=== PATIENT | male | born 1955 | race Caucasian/White ===

== ENCOUNTER → 2016-08-19 | Outpatient (RCR) | payer OTHER ==
[~2016-08-19] MED LIST: /ATOR40TA; /AUGM875TA; DOXE150C; FOSI10TA2; SYNT50TA; SYNTHROID; ZITH500T; [UNRECOGNIZED DRUG - OTHER]
== END ==
LOC: M PT 09:31
PROVIDERS: ATTEND Orthopaedic Surgery
DX: Z51.89 Encounter for other specified aftercare (principal); M75.40 Impingement syndrome of unspecified shoulder

== ENCOUNTER 2016-09-18 09:13 | Outpatient (RCR) | payer OTHER | END 2016-09-19 | LOC: M PT 09:13 | PROVIDERS: ATTEND Orthopaedic Surgery | DX: Z51.89 Encounter for other specified aftercare (principal); M75.40 Impingement syndrome of unspecified shoulder; M25.519 Pain in unspecified shoulder ==

== ENCOUNTER 2016-10-16 10:15 | Outpatient (RCR) | payer OTHER | END 2016-10-19 | LOC: M PT 10:15 | PROVIDERS: ATTEND Orthopaedic Surgery | DX: Z51.89 Encounter for other specified aftercare (principal); M75.40 Impingement syndrome of unspecified shoulder ==

== ENCOUNTER 2016-11-04 08:44 | Outpatient (RCR) | payer OTHER | END 2016-11-11 12:14 | disposition home or self-care (01) | LOC: M PT 08:44 | PROVIDERS: ATTEND Orthopaedic Surgery | DX: Z51.89 Encounter for other specified aftercare (principal); M75.40 Impingement syndrome of unspecified shoulder ==

== ENCOUNTER → 2016-12-31 | Outpatient (CLI) | payer OTHER | LOC: M LAB 15:00 | PROVIDERS: ATTEND Family Medicine | DX: E29.1 Testicular hypofunction (principal) ==

== ENCOUNTER → 2017-05-04 | Outpatient (CLI) | payer OTHER ==
[2017-05-04 11:09] LABS: MEAN CORPUSCULAR HEMOGLOBIN 30.3 pg (27.0-33.0); MEAN CORPUSCULAR HGB CONC 34.2 g/dl (32.0-36.5); MEAN CORPUSCULAR VOLUME 88.6 fl (80.0-96.0); PLATELET COUNT, AUTOMATED 163 10^3/uL (150-450); RED CELL DISTRIBUTION WIDTH 11.9 % (11.5-14.5); WHITE BLOOD COUNT 5.8 10^3/uL (4.0-10.0)
[2017-05-04 11:48] LABS: ALBUMIN 3.7 GM/DL (3.2-5.2); ALBUMIN/GLOBULIN RATIO 1.19 (1.00-1.93); ALKALINE PHOSPHATASE 69 U/L (45-117); ALT/SGPT 37 U/L (12-78); ANION GAP 5 MEQ/L (8-16); AST/SGOT 15 U/L (7-37); BILIRUBIN,TOTAL 0.6 MG/DL (0.2-1.0); BLOOD UREA NITROGEN 11 MG/DL (7-18); CALCIUM LEVEL 8.7 MG/DL (8.8-10.2); CARBON DIOXIDE LEVEL 31 MEQ/L (21-32); CHLORIDE LEVEL 104 MEQ/L (98-107); CHOLESTEROL LEVEL 138 MG/DL (<200); CREATININE FOR GFR 0.72 MG/DL (0.70-1.30); GLOMERULAR FILTRATION RATE > 60.0 (>49); GLUCOSE, FASTING 200 MG/DL (80-110); POTASSIUM SERUM 4.9 MEQ/L (3.5-5.1); SODIUM LEVEL 140 MEQ/L (136-145); TOTAL PROTEIN 6.8 GM/DL (6.4-8.2); TRIGLYCERIDES LEVEL 226 MG/DL (<150)
== END ==
LOC: M LAB 10:31
PROVIDERS: ATTEND Family Medicine
DX: I10 Essential (primary) hypertension (principal)

== ENCOUNTER → 2017-05-21 | Outpatient (RCR) | payer OTHER | LOC: M PT 05-18 14:53 | PROVIDERS: ATTEND Orthopaedic Surgery | DX: S80.12XD Contusion of left lower leg, subsequent encounter (principal); X58.XXXD Exposure to other specified factors, subsequent encounter; Y92.9 Unspecified place or not applicable; Y99.8 Other external cause status ==

== ENCOUNTER 2017-05-26 15:44 | Outpatient (RCR) | payer OTHER | END 2017-06-21 | LOC: M PT 15:44 | DX: Z51.89 Encounter for other specified aftercare (principal); S80.12XD Contusion of left lower leg, subsequent encounter ==

== ENCOUNTER → 2018-08-03 | Outpatient (CLI) | payer MEDICARE, OTHER ==
[~2018-08-03] MED LIST changes: +ATOR40TA75 PO; +DOXE50CA PO; +FOSI10TA2 PO; +GLYB5TA PO; +LEVO50TA5 PO; +METF-839 PO; +TADA5TAB PO; +TAMS1CAP17 PO; +TEST200I14 IM
[2018-08-03 10:55] LABS: HEMATOCRIT 51.4 % (42.0-52.0); HEMOGLOBIN 17.7 g/dl (13.5-17.5); MEAN CORPUSCULAR HEMOGLOBIN 30.6 pg (27.0-33.0); MEAN CORPUSCULAR HGB CONC 34.4 g/dl (32.0-36.5); MEAN CORPUSCULAR VOLUME 88.9 fl (80.0-96.0); PLATELET COUNT, AUTOMATED 161 10^3/uL (150-450); RED BLOOD COUNT 5.78 10^6/uL (4.30-6.10); WHITE BLOOD COUNT 5.7 10^3/uL (4.0-10.0)
[2018-08-03 11:16] LABS: ALT/SGPT 33 U/L (12-78); BILIRUBIN,TOTAL 0.7 MG/DL (0.2-1.0); BLOOD UREA NITROGEN 13 MG/DL (7-18); CALCIUM LEVEL 8.7 MG/DL (8.8-10.2); CARBON DIOXIDE LEVEL 29 MEQ/L (21-32); CHLORIDE LEVEL 105 MEQ/L (98-107); CHOLESTEROL LEVEL 138 MG/DL (<200); CHOLESTEROL RISK RATIO 4.312 (<5); CREATININE FOR GFR 0.72 MG/DL (0.70-1.30); GLOMERULAR FILTRATION RATE > 60.0 (>49); GLUCOSE, FASTING 179 MG/DL (70-100); HDL CHOLESTEROL 32 MG/DL (>40); LDL CHOLESTEROL 68 MG/DL (<100); NON-HDL-C 106 MG/DL; POTASSIUM SERUM 4.6 MEQ/L (3.5-5.1); PROSTATIC SPECIFIC AG MONITOR 0.35 NG/ML (< 4.00); SODIUM LEVEL 139 MEQ/L (136-145); TOTAL PROTEIN 6.7 GM/DL (6.4-8.2); TRIGLYCERIDES LEVEL 190 MG/DL (<150)
[2018-08-03 11:23] LABS: TESTOSTERONE 104 NG/DL (241-827)
[2018-08-03 11:55] LABS: HEMOGLOBIN A1c 7.8 %
== END ==
LOC: M LAB 10:08
PROVIDERS: ATTEND Family Medicine
DX: E03.9 Hypothyroidism, unspecified (principal); E11.9 Type 2 diabetes mellitus without complications
CPT/HCPCS: 36415; 80053; 80061; 83036; 84403; 84443; 85027; G0103

== ENCOUNTER 2018-08-23 10:09 | Day surgery (SDC) | payer MEDICARE, OTHER ==
[~2018-08-23] VITALS: Ht 165.1 cm; Wt 81.6 kg
[~2018-08-23 10:09] MED LIST changes: +NS 1,000 ML IV ONE
[2018-08-23] MEDS ORDERED: LIDOCAINE 2% INJ 100 MG/5 ML SDV (FOR ANES.) As Ordered ONE (10:54)
[2018-08-23] MEDS ORDERED: PROPOFOL 500 MG/50 ML VIAL As Ordered ONE (10:54)
--- NOTE | 2018-08-23 11:14 | ROOR ---
Patient Name: Joe Altamirano Procedure Date: 08/23/2018 10:48 AM Date of : 1955 Age: 63 Room: [facility] Gender: Male Note Status: Finalized Procedure: Total Colonoscopy to Cecum + ileoscopy Indications: High risk colon cancer surveillance: Personal history of colonic polyps, Last colonoscopy: 2013 Providers: Yovani Wade MD Referring MD: CIERA CAMPBELL MD Requesting Provider: Medicines: Monitored Anesthesia Care Complications: No immediate complications. Procedure: Pre-Anesthesia Assessment: - The heart rate, respiratory rate, oxygen saturations, blood pressure, adequacy of pulmonary ventilation, and response to care were monitored throughout the procedure. The Colonoscope was introduced through the anus and advanced to the cecum, identified by appendiceal orifice and ileocecal valve. The colonoscopy was performed without difficulty. The patient tolerated the procedure well. The quality of the bowel preparation was excellent. Findings: The perianal and digital rectal examinations were normal. Non-bleeding internal hemorrhoids were found during retroflexion. The hemorrhoids were small and Grade I (internal hemorrhoids that do not prolapse). Multiple small and large-mouthed diverticula were found in the recto-sigmoid colon, sigmoid colon and descending colon. The terminal ileum appeared normal. The exam was otherwise without abnormality on direct and retroflexion views. Impression: - Non-bleeding internal hemorrhoids. - Diverticulosis in the recto-sigmoid colon, in the sigmoid colon and in the descending colon. - The examined portion of the ileum was normal. - The examination was otherwise normal on direct and retroflexion views. - No specimens collected. - The exam was otherwise normal to the cecum. Recommendation: - Patient has a contact number available for emergencies. The signs and symptoms of potential delayed complications were discussed with the patient. Return to normal activities tomorrow. Written discharge instructions were provided to the patient. - High fiber diet. - Discharge patient to home. - Continue present medications. - Repeat colonoscopy in 5 years for surveillance. - Return to referring physician. - The findings and recommendations were discussed with the patient's family. Yovani Wade MD Yovani Wade MD 08/23/2018 11:13:58 AM This report has been signed electronically. Number of Addenda: 0 Note Initiated On: 08/23/2018 10:48 AM Estimated Blood Loss: Estimated blood loss: none.
[2018-08-23 11:37] VITALS: BP 153/93
== END 2018-08-23 11:41 | disposition home or self-care (01) ==
LOC: M OPP 10:09
PROVIDERS: ATTEND Internal Medicine Gastroenterology
DX: Z86.010 Personal history of colon polyps (principal); K64.0 First degree hemorrhoids; K57.30 Diverticulosis of large intestine without perforation or abscess without bleeding; E11.9 Type 2 diabetes mellitus without complications; Z79.84 Long term (current) use of oral hypoglycemic drugs; Z79.899 Other long term (current) drug therapy

== ENCOUNTER → 2019-01-31 | Outpatient (CLI) | payer MEDICARE, OTHER ==
[~2019-01-31] MED LIST changes: -/ATOR40TA; +LIPI1TAB2; -NS 1,000 ML IV ONE
[2019-01-31 10:12] LABS: PROSTATIC SPECIFIC AG MONITOR 0.49 NG/ML (< 4.00); THYROID STIMULATING HORMONE 2.13 uIU/ML (0.358-3.740)
[2019-01-31 10:37] LABS: HEMOGLOBIN A1c 7.6 %
== END ==
LOC: M LAB 09:01
PROVIDERS: ATTEND Family Medicine
DX: E03.9 Hypothyroidism, unspecified (principal); E11.9 Type 2 diabetes mellitus without complications; E29.1 Testicular hypofunction

== ENCOUNTER → 2019-06-20 | Outpatient (CLI) | payer MEDICARE, OTHER ==
[~2019-06-20] MED LIST changes: -FOSI10TA2 PO; +FOSI10TA4 PO
[2019-06-20 10:53] LABS: PROSTATIC SPECIFIC AG MONITOR 0.48 NG/ML (< 4.00)
[2019-06-20 11:05] LABS: HEMOGLOBIN A1c 7.5 %
== END ==
LOC: M LAB 09:23
PROVIDERS: ATTEND Family Medicine
DX: E29.1 Testicular hypofunction (principal); E11.9 Type 2 diabetes mellitus without complications; R53.83 Other fatigue; Z79.899 Other long term (current) drug therapy

== ENCOUNTER 2019-07-18 17:28 | Emergency (ER) | payer MEDICARE, OTHER ==
[~2019-07-18] VITALS: Ht 165.1 cm; Wt 83.5 kg
--- NOTE | 2019-07-18 18:24 | REP ---
Portable chest, 06:07 p.m., single AP view with the patient upright: Comparison is 05/10/2016. The lung maya are clear. Cardiac size is normal for portable positioning. The john, mediastinum, skeletal structures are unremarkable. Impression: Essentially negative portable chest. Electronically Signed by Austin Constantino MD 07/18/2019 06:14 P
[2019-07-18] MEDS ORDERED: ASPIRIN 81 MG CHEW TABLET PO ONE (18:30)
--- NOTE | 2019-07-18 18:54 | ECGEPIP ---
[facility] - ED Test Date: 2019-07-18 Pat Name: ODETTE GUTIERREZ Department: Room: - Gender: Male Community Mental Health Worker: merline : 1955 Requested By: THONG Guerra Order Number: [id number] Reading MD: Oliver Niño Measurements Intervals [place] Rate: 81 P: 47 NC: 176 QRS: -22 QRSD: 99 T: 45 QT: 355 QTc: 412 Interpretive Statements SINUS RHYTHM POSSIBLE LEFT ATRIAL ENLARGEMENT BORDERLINE LEFT AXIS DEVIATION INCOMPLETE RIGHT BUNDLE BRANCH BLOCK NONSPECIFIC T-WAVE ABNORMALITY Electronically Signed on 07-18-2019 18:54:12 EST by Oliver Niño
[2019-07-18 19:07] LABS: BASO # 0.1 10^3/uL (0.0-0.2); BASO % 0.7 % (0.0-1.0); EOS # 0.1 10^3/uL (0.0-0.5); EOS % 1.8 % (0.0-3.0); HEMATOCRIT 52.6 % (42.0-52.0); HEMOGLOBIN 17.1 g/dl (13.5-17.5); LYMPH # 1.6 10^3/uL (1.5-5.0); LYMPH % 23.5 % (24.0-44.0); MEAN CORPUSCULAR HEMOGLOBIN 29.3 pg (27.0-33.0); MEAN CORPUSCULAR HGB CONC 32.5 g/dl (32.0-36.5); MEAN CORPUSCULAR VOLUME 90.2 fl (80.0-96.0); MONO # 0.8 10^3/uL (0.0-0.8); MONO % 11.8 % (0.0-5.0); NEUTROPHILS # 4.1 10^3/uL (1.5-8.5); NEUTROPHILS % 61.8 % (36.0-66.0); PLATELET COUNT, AUTOMATED 168 10^3/uL (150-450); RED BLOOD COUNT 5.83 10^6/uL (4.30-6.10); WHITE BLOOD COUNT 6.7 10^3/uL (4.0-10.0)
[2019-07-18 19:18] LABS: INR 1.04; PROTHROMBIN TIME 13.3 SECONDS (11.8-14.0)
[2019-07-18 19:31] LABS: ALBUMIN 3.9 GM/DL (3.2-5.2); ALT/SGPT 31 U/L (12-78); BILIRUBIN,DIRECT 0.2 MG/DL (0.0-0.2); BILIRUBIN,TOTAL 0.6 MG/DL (0.2-1.0); BLOOD UREA NITROGEN 9 MG/DL (7-18); CALCIUM LEVEL 8.9 MG/DL (8.8-10.2); CARBON DIOXIDE LEVEL 26 MEQ/L (21-32); CHLORIDE LEVEL 109 MEQ/L (98-107); CK-MB VALUE MASS 9.6 NG/ML (<3.6); CPK CREATINE PHOSPHOKINASE 174 U/L (39-308); CREATININE FOR GFR 0.64 MG/DL (0.70-1.30); GLOMERULAR FILTRATION RATE > 60.0 (>49); GLUCOSE, FASTING 111 MG/DL (70-100); LIPASE 118 U/L (73-393); MB/CK RELATIVE INDEX 5.52 (< OR =4); POTASSIUM SERUM 4.4 MEQ/L (3.5-5.1); SODIUM LEVEL 140 MEQ/L (136-145); TOTAL PROTEIN 6.9 GM/DL (6.4-8.2); TROPONIN I 1.01 NG/ML (< 0.10)
[2019-07-18] MEDS ORDERED: HEPARIN DRIP 25,000 UNITS in IV 1 EA IV SCH (20:09)
[2019-07-18] MEDS ORDERED: HEPARIN SOD (PORCINE) 5000 UNITS/ML VIAL (J1644 PER 1000UNITS) IV ONE (20:15)
[2019-07-18] MEDS ORDERED: CLOPIDOGREL 300 MG TAB (PLAVIX) PO ONE (20:15)
[2019-07-18 21:30] VITALS: BP 177/96
[2019-07-18] MEDS ORDERED: NITROGLYCERIN 0.4 MG SUBL TABLET SL PRN (21:30)
[2019-07-18 21:34] VITALS: BP 177/96
== END 2019-07-18 21:37 | disposition short-term general hospital (02) ==
LOC: M ED 17:28
DX: I21.4 Non-ST elevation (NSTEMI) myocardial infarction (principal); I45.10 Unspecified right bundle-branch block; I10 Essential (primary) hypertension; E11.9 Type 2 diabetes mellitus without complications; E78.5 Hyperlipidemia, unspecified; E07.9 Disorder of thyroid, unspecified; Z79.899 Other long term (current) drug therapy; Z79.84 Long term (current) use of oral hypoglycemic drugs
CPT/HCPCS: 71045; 80048; 80076; 82550; 82553; 83690; 84484; 85025; 85610; 93005; 93041; 94760; 96374; 99285; J1644

== ENCOUNTER 2019-09-01 12:40 | Outpatient (RCR) | payer MEDICARE, OTHER ==
[~2019-09-01] VITALS: Ht 165.1 cm; Wt 171.0 kg
[2019-09-01 13:42] VITALS: BP 119/77
--- NOTE | 2019-09-01 14:24 | CARECAPL ---
Assessment Account #s: Initial Assessment General Diagnoses: CABG (x4), NSTEMI Date of event: Jul 25, 2019 Physician: Hung Savage MD Allergies: Coded Allergies: No Known Allergies (Unverified , 08/17/18) Date Entered Program: Sep 01, 2019 Risk strat for cardiac event: Moderate Exercise Date: Sep 01, 2019 Assessment: Initial Assessment Stages of change: Preperation Exercise Prescription Plan to build strength and endurance through a monitored exercise program and to educate about the risks of cardiac disease Modalities initiated: Treadmill (will add), Nustep (will add), Arm Aerometer (will add), Dumbells (will add), Recumbent Bike (will add) Frequency: 3 Duration (Minutes) 30 - 60 minutes total exercise a day. 15 - 20 work intervals in minutes. PRN rest intervals in minutes. Functional Capacity Goal Sustained Metabolic Equivalent of a task (MET) goal of 2.5-3.5 for 15 minutes. Intensity: 4-Quite a bit Progression (METS) Increase by: .5 METS every: 2-3 sessions Target Heart Rate Rest + 35-40 betablocker therapy Resistance Training: Yes Weight (pounds): 2 Reps: 6-8 Hypertension: Yes Hypertension controlled with: Medication Resting 119/77 Meds see below Medications Scheduled Atorvastatin Calcium (Atorvastatin Calcium), 40 MG PO QHS, (Reported) Doxepin HCl (Doxepin HCl), 200 MG PO QHS, (Reported) Fosinopril Sodium (Fosinopril Sodium), 10 MG PO QAM, (Reported) Glyburide (Glyburide), 5 MG PO BID, (Reported) Levothyroxine Sodium (Levothyroxine Sodium), 50 MCG PO DAILY, (Reported) Metformin HCl (Metformin HCl), 500 MG PO BID, (Reported) Tadalafil (Tadalafil), 5 MG PO QHS, (Reported) Tamsulosin Hcl (Tamsulosin HCl), 0.8 MG PO DAILY, (Reported) Testosterone Cypionate (Testosterone Cypionate), 2 ML IM [id number], (Reported) Target Goals Individual exercise Rx (1) BP 140/90 or 130/80 if DM or CKD (1) Aerobic active 30+min 5 days per week (1) Nutrition Date: Sep 01, 2019 Stages of change: Preperation Lipids Total Cholesterol (104), High Density Lipids (HDL) (31), Low Density Lipids (LDL) (56), Triglycerides (345) Lipid- med/supplement lipitor Diabetes Diabetes: Yes Diabetes medication metformin Weight Management Weight (lbs): 171 Height (inches): 65 Waist Circumference (Inches): 40 BMI: 28.5 Weight goal: 160 Alcohol: none Diet Access Tool: Rate your plate Score: 50 Target goal LDL-C<100 if triglycerides are >200 Non-HDL-C should be <130 (1) LDL-C<70 for high risk patients (4) HbA1c<7% (1) BMI<25 Waist cir<40in M/<35in F (1) Education Date: Sep 01, 2019 Assessment: Initial Assessment Learning Barriers: ready, learn Knowledge Test Score: 10 Stages of change: Contemplate Family Support: Yes Tobacco use: No Quit: >6 months Tobacco Use Smokeless tobacco: No Intervention Referral to smoking cessation: No Individual education and couns: No Tobacco Adjunct: No Target Goals Complete cessation of tobacco use (1). Psychosocial Date: Sep 01, 2019 Assessment: Initial Assessment Psych Test (Initial/Discharge) Tool Used: Other Score: 2 Stages of change: Preperation Intervention Physician Consult: No Physician Referral: No Target Goal Assess presence or absence of depression using a valid screening tool (1). Maximize coping skills (2). Positive support system (2). Patient/Program Goal Preventative Medication: Yes Aspirin, Yes Clopidogrel, Yes Beta blockade, Yes Statin/OTR lipid Lowering Fall Risk Assess: No Provider Assessment Provider Assessment: Proceed with rehab Chrissy Arndt RN Sep 01, 2019 14:24
--- NOTE | 2019-09-09 13:33 | CARECAPL ---
General Allergies: Coded Allergies: No Known Allergies (Unverified , 08/17/18) Exercise Prescription Duration (Minutes) 30 - 60 minutes total exercise a day. 15 - 20 work intervals in minutes. PRN rest intervals in minutes. Functional Capacity Goal Sustained Metabolic Equivalent of a task (MET) goal of for minutes. Progression (METS) Increase by: METS every: sessions Medications Scheduled Atorvastatin Calcium (Atorvastatin Calcium), 40 MG PO QHS, (Reported) Doxepin HCl (Doxepin HCl), 200 MG PO QHS, (Reported) Fosinopril Sodium (Fosinopril Sodium), 10 MG PO QAM, (Reported) Glyburide (Glyburide), 5 MG PO BID, (Reported) Levothyroxine Sodium (Levothyroxine Sodium), 50 MCG PO DAILY, (Reported) Metformin HCl (Metformin HCl), 500 MG PO BID, (Reported) Tadalafil (Tadalafil), 5 MG PO QHS, (Reported) Tamsulosin Hcl (Tamsulosin HCl), 0.8 MG PO DAILY, (Reported) Testosterone Cypionate (Testosterone Cypionate), 2 ML IM [id number], (Reported) Target Goals Individual exercise Rx (1) BP 140/90 or 130/80 if DM or CKD (1) Aerobic active 30+min 5 days per week (1) Target goal LDL-C<100 if triglycerides are >200 Non-HDL-C should be <130 (1) LDL-C<70 for high risk patients (4) HbA1c<7% (1) BMI<25 Waist cir<40in M/<35in F (1) Target Goals Complete cessation of tobacco use (1). Psychosocial Date: Sep 09, 2019 Target Goal Assess presence or absence of depression using a valid screening tool (1). Maximize coping skills (2). Positive support system (2). Provider Assessment Provider Assessment: No changes (cardiac rehab program closed d/t covid 19 pt accoutn to [place]) Chrissy Arndt RN Sep 09, 2019 13:33
== END 2019-09-20 ==
LOC: M CR 12:40
PROVIDERS: ATTEND Internal Medicine Cardiovascular Disease
DX: Z95.1 Presence of aortocoronary bypass graft (principal)

== ENCOUNTER 2020-10-04 23:57 | Emergency (ER) | payer MEDICARE, OTHER ==
[~2020-10-04] VITALS: Ht 167.6 cm; Wt 81.2 kg
[~2020-10-04 23:57] MED LIST changes: -GLYB5TA PO; +GLYB5TAB6 PO
[2020-10-05] MEDS ORDERED: METO37.5 PO (00:07)
[2020-10-05] MEDS ORDERED: ECOT81TA5 PO (00:07)
[2020-10-05] MEDS ORDERED: PLAV1TAB2 PO (00:07)
[2020-10-05] MEDS ORDERED: ONDANSETRON 4MG/2ML VIAL IV ONE (00:40)
[2020-10-05] MEDS ORDERED: ACETAMINOPHEN 325 MG TAB PO ONE (01:15)
[2020-10-05 01:24] LABS: BASO # 0.1 10^3/uL (0.0-0.2); BASO % 0.7 % (0.0-1.0); EOS # 0.1 10^3/uL (0.0-0.5); EOS % 1.6 % (0.0-3.0); HEMATOCRIT 40.6 % (42.0-52.0); HEMOGLOBIN 13.8 g/dl (13.5-17.5); LYMPH # 1.8 10^3/uL (1.5-5.0); LYMPH % 26.3 % (24.0-44.0); MEAN CORPUSCULAR HEMOGLOBIN 30.6 pg (27.0-33.0); MONO # 0.8 10^3/uL (0.0-0.8); MONO % 11.5 % (2.0-8.0); NEUTROPHILS # 4.2 10^3/uL (1.5-8.5); NEUTROPHILS % 59.6 % (36.0-66.0); PLATELET COUNT, AUTOMATED 182 10^3/uL (150-450); RED BLOOD COUNT 4.51 10^6/uL (4.30-6.10)
--- NOTE | 2020-10-05 01:31 | REPVR ---
PROCEDURE INFORMATION: Exam: CT Abdomen And Pelvis Without Contrast Exam date and time: 10/05/2020 12:36 AM Age: 65 years old Clinical indication: Abdominal pain; Flank; Left; Additional info: L flank pain, hematuria, HX renal stones TECHNIQUE: Imaging protocol: Computed tomography of the abdomen and pelvis without contrast. Radiation optimization: All CT scans at this facility use at least one of these dose optimization techniques: automated exposure control; mA and/or kV adjustment per patient size (includes targeted exams where dose is matched to clinical indication); or iterative reconstruction. COMPARISON: No relevant prior studies available. FINDINGS: Lungs: Calcified granuloma the right middle lobe. Bilateral dependent atelectasis. Liver: Hepatomegaly and steatosis. Gallbladder and bile ducts: Normal. No calcified stones. No ductal dilation. Pancreas: Normal. No ductal dilation. Spleen: Normal. No splenomegaly. Adrenal glands: Normal. No mass. Kidneys and ureters: Mild left hydroureteronephrosis to the level of a 4 mm calculus in the distal left ureter. Exophytic hemorrhagic or proteinaceous left renal cyst measuring approximately 3 cm in diameter. Small hemorrhagic right renal cyst is also noted. Stomach and bowel: Diverticulosis of colon. No evidence of acute diverticulitis. Scattered small bowel diverticula. Appendix: No evidence of appendicitis. Intraperitoneal space: Unremarkable. No free air. No significant fluid collection. Vasculature: Atherosclerotic disease of the abdominal aorta. Lymph nodes: Unremarkable. No enlarged lymph nodes. Urinary bladder: Unremarkable as visualized. Reproductive: Unremarkable as visualized. Bones/joints: Status post median sternotomy and CABG. Severe multilevel degenerative disease and facet hypertrophy of the thoracolumbar spine. Marked stenosis of the spinal canal at L3-L4. Severe bilateral neural foraminal stenosis L4-L5. Soft tissues: Fat containing right inguinal hernia. IMPRESSION: Mild left hydroureteronephrosis to the level of a 4 mm calculus in the distal left ureter. COMMENTS: Consistent with the [employer]'s Incidental Findings Committee white paper (J Am Edson Radiol 2018): Any incidental renal lesion less than 1 cm or classified as too small to characterize, or any incidental cystic renal lesion characterized as simple-appearing, is likely benign. No follow-up imaging is recommended for these lesions per consensus recommendations based on imaging criteria. Electronically signed by: Pranay Sauer On 10/05/2020 01:31:49 AM
[2020-10-05 01:45] LABS: ALBUMIN 3.8 GM/DL (3.2-5.2); BILIRUBIN,DIRECT 0.1 MG/DL (0.0-0.2); BILIRUBIN,TOTAL 0.4 MG/DL (0.2-1.0); TOTAL PROTEIN 6.9 GM/DL (6.4-8.2)
[2020-10-05] MEDS ORDERED: FLOM0.4C39 PO (01:53)
[2020-10-05 02:06] VITALS: BP 122/80
== END 2020-10-05 02:08 | disposition home or self-care (01) ==
LOC: M ED 23:57
DX: N20.0 Calculus of kidney (principal); N23 Unspecified renal colic; E11.9 Type 2 diabetes mellitus without complications; I10 Essential (primary) hypertension; E03.9 Hypothyroidism, unspecified; E78.5 Hyperlipidemia, unspecified; I25.2 Old myocardial infarction; Z95.1 Presence of aortocoronary bypass graft; Z79.899 Other long term (current) drug therapy; Z79.82 Long term (current) use of aspirin; Z79.84 Long term (current) use of oral hypoglycemic drugs; Z79.890 Hormone replacement therapy; Z79.01 Long term (current) use of anticoagulants
CPT/HCPCS: 74176; 80047; 80076; 81001; 85025; 96374; 99284; J2405

== ENCOUNTER 2021-02-27 10:24 | Emergency (ER) | payer MEDICARE, OTHER ==
[~2021-02-27] VITALS: Ht 165.1 cm; Wt 77.5 kg
[~2021-02-27 10:24] MED LIST changes: +ECOT81TA5 PO; +FLOM0.4C39 PO; +METO37.5 PO; +PLAV1TAB2 PO
[2021-02-27] MEDS ORDERED: METO1TAB87 (10:41)
[2021-02-27 13:19] LABS: BASO % 0.7 % (0.0-1.0); EOS # 0.1 10^3/uL (0.0-0.5); EOS % 0.9 % (0.0-3.0); HEMATOCRIT 38.9 % (42.0-52.0); HEMOGLOBIN 12.9 g/dl (13.5-17.5); LYMPH # 1.2 10^3/uL (1.5-5.0); LYMPH % 21.4 % (24.0-44.0); MEAN CORPUSCULAR HEMOGLOBIN 30.6 pg (27.0-33.0); MEAN CORPUSCULAR HGB CONC 33.2 g/dl (32.0-36.5); MEAN CORPUSCULAR VOLUME 92.4 fl (80.0-96.0); MONO % 16.8 % (2.0-8.0); NEUTROPHILS # 3.4 10^3/uL (1.5-8.5); NEUTROPHILS % 59.8 % (36.0-66.0); PLATELET COUNT, AUTOMATED 144 10^3/uL (150-450); RED BLOOD COUNT 4.21 10^6/uL (4.30-6.10); WHITE BLOOD COUNT 5.7 10^3/uL (4.0-10.0)
--- NOTE | 2021-02-27 13:21 | REP ---
INDICATION: SOB; COVID +. COMPARISON: 07/18/2019. TECHNIQUE: Single portable AP view of the chest was performed. FINDINGS: There is no acute infiltrate or pulmonary edema. Lungs are clear. The heart is not significantly enlarged. The mediastinal silhouette is unremarkable. The visualized osseous structures are intact.Multiple sternal wires are present. There is a stable calcified granuloma in the left upper lobe. IMPRESSION: No acute pulmonary disease. <Electronically signed by Austin Livingston > 02/27/21 [id number]
[2021-02-27 13:45] VITALS: BP 132/71
[2021-02-27 13:46] LABS: ALBUMIN 3.4 GM/DL (3.2-5.2); ALT/SGPT 28 U/L (12-78); BILIRUBIN,TOTAL 0.9 MG/DL (0.2-1.0); BLOOD UREA NITROGEN 15 MG/DL (7-18); CALCIUM LEVEL 8.9 MG/DL (8.8-10.2); CARBON DIOXIDE LEVEL 28 MEQ/L (21-32); CHLORIDE LEVEL 106 MEQ/L (98-107); CK-MB VALUE MASS 1.3 NG/ML (<3.6); CPK CREATINE PHOSPHOKINASE 135 U/L (39-308); CREATININE FOR GFR 0.82 MG/DL (0.70-1.30); GLOMERULAR FILTRATION RATE > 60.0 (>49); GLUCOSE, FASTING 124 MG/DL (70-100); MB/CK RELATIVE INDEX 0.96 (< OR =4); POTASSIUM SERUM 4.5 MEQ/L (3.5-5.1); SODIUM LEVEL 139 MEQ/L (136-145); TOTAL PROTEIN 6.7 GM/DL (6.4-8.2); TROPONIN I < 0.02 NG/ML (< 0.10)
--- NOTE | 2021-02-28 06:00 | ECGEPIP ---
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
== END 2021-02-27 16:12 | disposition home or self-care (01) ==
LOC: M ED 10:24
DX: U07.1 COVID-19 (principal); I25.2 Old myocardial infarction; E11.9 Type 2 diabetes mellitus without complications; I10 Essential (primary) hypertension; E78.5 Hyperlipidemia, unspecified; Z95.1 Presence of aortocoronary bypass graft; Z79.84 Long term (current) use of oral hypoglycemic drugs; Z79.82 Long term (current) use of aspirin; Z79.899 Other long term (current) drug therapy
CPT/HCPCS: 36415; 71045; 80053; 82550; 82553; 84484; 85025; 93005; 99284; M0243

== ENCOUNTER 2021-02-27 16:15 | Outpatient (CLI) | payer MEDICARE, OTHER ==
[~2021-02-27] VITALS: Ht 165.1 cm; Wt 77.5 kg
--- NOTE | 2021-02-27 15:28 | HPEPDOC ---
[facility] Medical History & Physical Date of Admission Feb 27, 2021 Date of Service: Feb 27, 2021 History and Physical Chief complaint: Who presented to the emergency room with weakness/ sore throat / stuffy nose History of present illness: Patient is a 65-year-old male who presented to the emergency room after experiencing 3 days of stuffy nose, sore throat and weakness. Patient lives with his , daughter and grandson. He reports that his daughter and grandson had tested positive for COVDI19 so he went to get tested on 02/26 and was found to be positive. Patient reported that hes been experiencing some shortness of breath with exert ion mostly nonproductive cough. Denies any chest pain or palpitations. Has had some nausea without vomiting. Denies any abdominal pain. Denies any constipation, diarrhea, or any urinary discomfort. Patient reports chills and subjective fevers while at home. Reports a poor appetite. Patient has reported that he has received 2 doses of the vaccine back in . Past Medical History: CAD s/p CABG HTN DLP NIDDM2 BPH Mood disorder Past Surgical History: CABG (06/2019) at [facility] Allergies: See below Medications: See below Family History: - Reviewed and noncontributory Social History: - Denies using tobacco, reports social alcohol use reported marijuana use. Very long time ago - Denies recent travel or sick contacts - Lives with , daughter and grandson - Occupation; patient is retired from [employer] Review of Systems: 10 point review of systems complete, all negative otherwise stated in HPI Physical exam: - Vitals: BP [132/71], HR [69], RR [18], Sat [96%RA], Temp [98.9F] - General: Lying in bed, Speaking in full sentences, AAOx3 - HEENT: NC, AT, PERRLA - CVS: RRR, +S1S2 - Lungs: Fair air entry bilaterally, No appreciable wheezing / rales / rhonchi - Abdomen: Soft, Non-distended, Non-tender - Extremities: No lower extremity edema, No calf tenderness - Neuro: No focal motor or sensory deficit - Skin: No visible rashes Labs: CXR 02/27: No acute pulmonary disease. Imaging: See below EKG: See below Assessment and Plan: Acute COVID19 infection - Patient presented to the emergency room after experiencing 3 days of sore throat, stuffy nose and weakness - In the emergency room, patient is saturating well on room air at 96% - Auscultation reveals clear lung maya; he remains hemodynamically stable and afebrile - Inflammatory markers are not significantly elevated - Imaging noted above - Patient meets criteria for infusion of monoclonal antibodies - Risk and benefits of monoclonal antibodies have been described; patient has consented and signed paperwork - Will receive monoclonal antibody fusion and will be subsequently discharged home with instructions to follow up with his primary care provider Home Medications Scheduled Aspirin (Ecotrin) 81 Mg Tablet.dr, 81 MG PO DAILY for pain Atorvastatin Calcium (Atorvastatin Calcium) 40 Mg Tab, 80 MG PO QHS Clopidogrel Bisulfate (Plavix) 75 Mg Tablet, 75 MG PO DAILY Doxepin HCl (Doxepin HCl) 50 Mg Cap, 200 MG PO QHS Fosinopril Sodium (Fosinopril Sodium) 10 Mg Tab, 20 MG PO QAM Glyburide (Glyburide) 5 Mg Tab, 5 MG PO BID Levothyroxine Sodium (Levothyroxine Sodium) 50 Mcg Tab, 88 MCG PO DAILY Metformin HCl (Metformin HCl) 500 Mg Tab, 500 MG PO BID Metoprolol Tartrate (Metoprolol Tartrate) 37.5 Mg Tablet, 25 MG PO BID Tamsulosin HCl (Flomax) 0.4 Mg Capsule, 1 CAP PO DAILY once daily 1/2 hour following the same meal each day Tamsulosin Hcl (Tamsulosin HCl) 0.4 Mg Cap, 0.8 MG PO DAILY Miscellaneous Medications Metoprolol Tartrate (Metoprolol Tartrate) 25 Mg Tablet Allergies Coded Allergies: No Known Allergies (Unverified , 08/17/18) LUIS FERNANDO BERNAL MD Feb 27, 2021 15:28
[~2021-02-27 16:15] MED LIST changes: +ALBUTEROL 90 MCG/ACT 8GM HFA INHALER INH PRN; +ALBUTEROL SULFATE 2.5 MG/0.5 ML INH NEB SOLN INH PRN; +EPINEPHrine INJ 1 MG/ML 1ML AMP IM PRN; +METO1TAB87; +NS 1,000 ML IV SCH; +diphenhydrAMINE 50MG/ML VIAL (J1200) IV PRN; +methylPREDNISolone 125MG 2ML VIAL IV PRN
[2021-02-27 16:29] VITALS: BP 131/69
[2021-02-27 18:00] VITALS: BP 121/58
[2021-02-27] MEDS ORDERED: CASIRIVIMAB/IMDEVIMAB 1,200 MG in NS 250 ML IV ONE (18:00)
[2021-02-27 18:26] VITALS: BP 121/58
[2021-02-27 19:05] VITALS: BP 115/56
[2021-02-27 19:59] VITALS: BP 158/78
== END 2021-02-27 20:05 | disposition home or self-care (01) ==
LOC: M 4MAIN 16:15 → M OPCLI4 16:15
PROVIDERS: ATTEND Internal Medicine
DX: U07.1 COVID-19 (principal)

== ENCOUNTER → 2021-04-11 | Outpatient (CLI) | payer MEDICARE, OTHER ==
[~2021-04-11] MED LIST changes: -ALBUTEROL 90 MCG/ACT 8GM HFA INHALER INH PRN; -ALBUTEROL SULFATE 2.5 MG/0.5 ML INH NEB SOLN INH PRN; -EPINEPHrine INJ 1 MG/ML 1ML AMP IM PRN; -NS 1,000 ML IV SCH; -diphenhydrAMINE 50MG/ML VIAL (J1200) IV PRN; -methylPREDNISolone 125MG 2ML VIAL IV PRN
[2021-04-11 13:16] LABS: HEMATOCRIT 38.9 % (42.0-52.0); MEAN CORPUSCULAR HEMOGLOBIN 30.4 pg (27.0-33.0); MEAN CORPUSCULAR HGB CONC 33.4 g/dl (32.0-36.5); MEAN CORPUSCULAR VOLUME 90.9 fl (80.0-96.0); PLATELET COUNT, AUTOMATED 184 10^3/uL (150-450); RED BLOOD COUNT 4.28 10^6/uL (4.30-6.10); WHITE BLOOD COUNT 5.1 10^3/uL (4.0-10.0)
[2021-04-11 13:35] LABS: HEMOGLOBIN A1c 6.2 %
[2021-04-11 13:59] LABS: ALBUMIN 3.5 GM/DL (3.2-5.2); ALT/SGPT 36 U/L (12-78); BILIRUBIN,TOTAL 0.7 MG/DL (0.2-1.0); BLOOD UREA NITROGEN 15 MG/DL (7-18); CALCIUM LEVEL 8.5 MG/DL (8.8-10.2); CARBON DIOXIDE LEVEL 26 MEQ/L (21-32); CHLORIDE LEVEL 107 MEQ/L (98-107); CHOLESTEROL LEVEL 117 MG/DL (<200); CHOLESTEROL RISK RATIO 3.656 (<5); CREATININE FOR GFR 0.78 MG/DL (0.70-1.30); GLOMERULAR FILTRATION RATE > 60.0 (>49); GLUCOSE, FASTING 181 MG/DL (70-100); HDL CHOLESTEROL 32 MG/DL (>40); LDL CHOLESTEROL 42 MG/DL (<100); NON-HDL-C 85 MG/DL; POTASSIUM SERUM 4.9 MEQ/L (3.5-5.1); PROSTATIC SPECIFIC AG MONITOR 0.22 NG/ML (< 4.00); SODIUM LEVEL 138 MEQ/L (136-145); TESTOSTERONE 90 NG/DL (241-827); THYROID STIMULATING HORMONE 0.517 uIU/ML (0.358-3.740); TOTAL 25(OH) VITAMIN D 26.8 NG/ML (30.0-100.0); TOTAL PROTEIN 6.7 GM/DL (6.4-8.2); TRIGLYCERIDES LEVEL 216 MG/DL (<150)
== END ==
LOC: M LAB 12:01
PROVIDERS: ATTEND Family Medicine
DX: I10 Essential (primary) hypertension (principal); E03.9 Hypothyroidism, unspecified; R97.20 Elevated prostate specific antigen [PSA]

== ENCOUNTER → 2021-05-03 | Outpatient (CLI) | payer MEDICARE, OTHER ==
--- NOTE | 2021-05-03 11:55 | REP ---
INDICATION: SPRAIN. COMPARISON: 01/02/2006 TECHNIQUE: Four views FINDINGS: Mild joint space narrowing has developed throughout since the last exam.. There is no evidence of acute fracture or destructive osseous lesion. Plantar and retrocalcaneal heel spurs seen previously have increased in size. IMPRESSION: Chronic changes as described above. <Electronically signed by Torin Mcmahon > 05/03/21 [id number]
--- NOTE | 2021-05-03 11:56 | REP ---
INDICATION: SPRAIN. COMPARISON: 01/02/2006 TECHNIQUE: Four views FINDINGS: No acute fracture or destructive osseous lesion. The mortise is intact. IMPRESSION: No acute osseous abnormality. <Electronically signed by Torin Mcmahon > 05/03/21 [id number]
== END ==
LOC: M WUC 11:17
PROVIDERS: ATTEND Physician Assistant
DX: S93.402A Sprain of unspecified ligament of left ankle, initial encounter (principal); S93.602A Unspecified sprain of left foot, initial encounter; W18.30XA Fall on same level, unspecified, initial encounter; Y92.009 Unspecified place in unspecified non-institutional (private) residence as the place of occurrence of the external cause

== ENCOUNTER → 2022-01-21 | Outpatient (CLI) | payer MEDICARE, OTHER ==
[~2022-01-21] MED LIST changes: -FOSI10TA4 PO; +FOSI10TA44 PO
[2022-01-21 10:50] LABS: HEMATOCRIT 38.7 % (42.0-52.0); HEMOGLOBIN 13.1 g/dl (13.5-17.5); MEAN CORPUSCULAR HEMOGLOBIN 30.7 pg (27.0-33.0); MEAN CORPUSCULAR HGB CONC 33.9 g/dl (32.0-36.5); MEAN CORPUSCULAR VOLUME 90.6 fl (80.0-96.0); PLATELET COUNT, AUTOMATED 153 10^3/uL (150-450); RED BLOOD COUNT 4.27 10^6/uL (4.30-6.10); WHITE BLOOD COUNT 5.6 10^3/uL (4.0-10.0)
[2022-01-21 12:59] LABS: ALBUMIN 3.8 GM/DL (3.2-5.2); ALT/SGPT 31 U/L (12-78); BILIRUBIN,TOTAL 0.4 MG/DL (0.2-1.0); BLOOD UREA NITROGEN 16 MG/DL (7-18); CALCIUM LEVEL 9.3 MG/DL (8.8-10.2); CARBON DIOXIDE LEVEL 26 MEQ/L (21-32); CHLORIDE LEVEL 111 MEQ/L (98-107); CHOLESTEROL LEVEL 139 MG/DL (<200); CHOLESTEROL RISK RATIO 4.343 (<5); CREATININE FOR GFR 0.76 MG/DL (0.70-1.30); GLOMERULAR FILTRATION RATE > 60.0 (>49); GLUCOSE, FASTING 183 MG/DL (70-100); HDL CHOLESTEROL 32 MG/DL (>40); LDL CHOLESTEROL 55 MG/DL (<100); NON-HDL-C 107 MG/DL; POTASSIUM SERUM 4.7 MEQ/L (3.5-5.1); SODIUM LEVEL 142 MEQ/L (136-145); THYROID STIMULATING HORMONE 0.127 uIU/ML (0.358-3.740); TOTAL PROTEIN 6.6 GM/DL (6.4-8.2); TRIGLYCERIDES LEVEL 262 MG/DL (<150)
[2022-01-21 13:31] LABS: TESTOSTERONE 44 NG/DL (241-827)
[2022-01-21 15:18] LABS: HEMOGLOBIN A1c 6.9 %
== END ==
LOC: M RAD 10:15
PROVIDERS: ATTEND Family Medicine
DX: R53.83 Other fatigue (principal); E78.00 Pure hypercholesterolemia, unspecified; Z12.5 Encounter for screening for malignant neoplasm of prostate
CPT/HCPCS: 36415; 71046; 80053; 80061; 82306; 83036; 84403; 84443; 85027; 93005; G0103

== ENCOUNTER → 2022-03-20 | Outpatient (CLI) | payer MEDICARE, OTHER ==
[2022-03-20 16:47] LABS: HEMATOCRIT 44.7 % (42.0-52.0); HEMOGLOBIN 14.6 g/dl (13.5-17.5); MEAN CORPUSCULAR HEMOGLOBIN 30.3 pg (27.0-33.0); MEAN CORPUSCULAR HGB CONC 32.7 g/dl (32.0-36.5); MEAN CORPUSCULAR VOLUME 92.7 fl (80.0-96.0); PLATELET COUNT, AUTOMATED 169 10^3/uL (150-450); RED BLOOD COUNT 4.82 10^6/uL (4.30-6.10); WHITE BLOOD COUNT 6.2 10^3/uL (4.0-10.0)
[2022-03-20 17:34] LABS: ALBUMIN 3.7 GM/DL (3.2-5.2); ALT/SGPT 23 U/L (12-78); BILIRUBIN,TOTAL 0.8 MG/DL (0.2-1.0); BLOOD UREA NITROGEN 10 MG/DL (7-18); CALCIUM LEVEL 8.6 MG/DL (8.8-10.2); CARBON DIOXIDE LEVEL 29 MEQ/L (21-32); CHLORIDE LEVEL 101 MEQ/L (98-107); CHOLESTEROL LEVEL 70 MG/DL (<200); CREATININE FOR GFR 0.95 MG/DL (0.70-1.30); GLOMERULAR FILTRATION RATE > 60.0 (>49); GLUCOSE, FASTING 252 MG/DL (70-100); HDL CHOLESTEROL 28 MG/DL (>40); LDL CHOLESTEROL 23 MG/DL (<100); NON-HDL-C 42 MG/DL; POTASSIUM SERUM 3.9 MEQ/L (3.5-5.1); SODIUM LEVEL 136 MEQ/L (136-145); TOTAL PROTEIN 6.7 GM/DL (6.4-8.2); TRIGLYCERIDES LEVEL 97 MG/DL (<150)
[2022-03-20 17:35] LABS: THYROID STIMULATING HORMONE 0.264 uIU/ML (0.358-3.740)
[2022-03-20 19:02] LABS: TESTOSTERONE 609 NG/DL (241-827)
[2022-03-20 19:04] LABS: HEMOGLOBIN A1c 6.4 %
== END ==
LOC: M LAB 15:14
PROVIDERS: ATTEND Family Medicine
DX: I10 Essential (primary) hypertension (principal); Z12.5 Encounter for screening for malignant neoplasm of prostate
CPT/HCPCS: 36415; 80053; 80061; 83036; 84403; 84443; 85027; G0103

== ENCOUNTER → 2022-07-16 | Outpatient (CLI) | payer MEDICARE, OTHER ==
[~2022-07-16] MED LIST changes: +CLOP75TA99 PO; -PLAV1TAB2 PO
[2022-07-16 14:57] LABS: HEMATOCRIT 45.7 % (42.0-52.0); MEAN CORPUSCULAR HEMOGLOBIN 29.1 pg (27.0-33.0); MEAN CORPUSCULAR HGB CONC 32.8 g/dl (32.0-36.5); MEAN CORPUSCULAR VOLUME 88.6 fl (80.0-96.0); PLATELET COUNT, AUTOMATED 182 10^3/uL (150-450); RED BLOOD COUNT 5.16 10^6/uL (4.30-6.10); WHITE BLOOD COUNT 7.1 10^3/uL (4.0-10.0)
[2022-07-16 15:24] LABS: ALBUMIN 4.1 G/DL (3.2-5.2); ALKALINE PHOSPHATASE 71 U/L (46-116); ALT/SGPT 24 U/L (7.0-40); AST/SGOT 19 U/L (<34); BILIRUBIN,TOTAL 1.1 MG/DL (0.3-1.2); BLOOD UREA NITROGEN 16 MG/DL (9-23); CARBON DIOXIDE LEVEL 28 MMOL/L (20-31); CHLORIDE LEVEL 104 MMOL/L (98-107); CHOLESTEROL LEVEL 115 MG/DL (<200); CHOLESTEROL RISK RATIO 3.66 (<5); CREATININE FOR GFR 0.67 MG/DL (0.70-1.30); GLOMERULAR FILTRATION RATE > 60.0 (>49); GLUCOSE, FASTING 158 MG/DL (74-106); HDL CHOLESTEROL 31.4 MG/DL (>40); LDL CHOLESTEROL 44.4 MG/DL (<100); NON-HDL-C 84 MG/DL; POTASSIUM SERUM 4.8 MMOL/L (3.5-5.1); SODIUM LEVEL 138 MMOL/L (136-145); TOTAL PROTEIN 7.2 G/DL (5.7-8.2); TRIGLYCERIDES LEVEL 196 MG/DL (<150)
[2022-07-16 15:26] LABS: THYROID STIMULATING HORMONE 0.757 uIU/ML (0.55-4.78)
[2022-07-16 15:27] LABS: TESTOSTERONE 52 NG/DL (241-827)
[2022-07-16 15:49] LABS: HEMOGLOBIN A1c 6.6 % (4.0-6.0)
== END ==
LOC: M LAB 13:41
PROVIDERS: ATTEND Family Medicine
DX: I10 Essential (primary) hypertension (principal); Z12.5 Encounter for screening for malignant neoplasm of prostate
CPT/HCPCS: 36415; 80053; 80061; 83036; 84403; 84443; 85027; G0103

== ENCOUNTER → 2022-11-15 | Outpatient (CLI) | payer MEDICARE, OTHER ==
[2022-11-15 11:22] LABS: HEMATOCRIT 47.9 % (42.0-52.0); MEAN CORPUSCULAR HGB CONC 33.4 g/dl (32.0-36.5); MEAN CORPUSCULAR VOLUME 89.7 fl (80.0-96.0); PLATELET COUNT, AUTOMATED 144 10^3/uL (150-450); RED BLOOD COUNT 5.34 10^6/uL (4.30-6.10); WHITE BLOOD COUNT 6.2 10^3/uL (4.0-10.0)
[2022-11-15 11:54] LABS: HEMOGLOBIN A1c 6.7 % (4.0-6.0)
[2022-11-15 11:55] LABS: ALBUMIN 4.1 G/DL (3.2-5.2); ALKALINE PHOSPHATASE 68 U/L (46-116); ALT/SGPT 35 U/L (7.0-40); AST/SGOT 22 U/L (<34); BILIRUBIN,TOTAL 0.8 MG/DL (0.3-1.2); BLOOD UREA NITROGEN 15 MG/DL (9-23); CALCIUM LEVEL 8.8 MG/DL (8.3-10.6); CARBON DIOXIDE LEVEL 29 MMOL/L (20-31); CHLORIDE LEVEL 105 MMOL/L (98-107); CHOLESTEROL LEVEL 110 MG/DL (<200); CHOLESTEROL RISK RATIO 3.95 (<5); GLOMERULAR FILTRATION RATE > 60.0 (>49); GLUCOSE, FASTING 179 MG/DL (74-106); HDL CHOLESTEROL 27.8 MG/DL (>40); LDL CHOLESTEROL 41.4 MG/DL (<100); NON-HDL-C 82.2 MG/DL; POTASSIUM SERUM 4.9 MMOL/L (3.5-5.1); PROSTATIC SPECIFIC AG MONITOR 0.31 NG/ML (< 4.00); SODIUM LEVEL 139 MMOL/L (136-145); TOTAL PROTEIN 6.7 G/DL (5.7-8.2); TRIGLYCERIDES LEVEL 204 MG/DL (<150)
[2022-11-15 11:57] LABS: TESTOSTERONE 70 NG/DL (241-827); THYROID STIMULATING HORMONE 0.597 uIU/ML (0.55-4.78)
== END ==
LOC: M LAB 10:53
PROVIDERS: ATTEND Family Medicine
DX: I10 Essential (primary) hypertension (principal); R97.20 Elevated prostate specific antigen [PSA]

== ENCOUNTER → 2023-01-22 | Outpatient (CLI) | payer MEDICARE, OTHER ==
[2023-01-22 10:24] LABS: HEMATOCRIT 47.8 % (42.0-52.0); HEMOGLOBIN 15.6 g/dl (13.5-17.5); MEAN CORPUSCULAR HEMOGLOBIN 30.3 pg (27.0-33.0); MEAN CORPUSCULAR HGB CONC 32.6 g/dl (32.0-36.5); MEAN CORPUSCULAR VOLUME 92.8 fl (80.0-96.0); PLATELET COUNT, AUTOMATED 160 10^3/uL (150-450); RED BLOOD COUNT 5.15 10^6/uL (4.30-6.10); WHITE BLOOD COUNT 7.6 10^3/uL (4.0-10.0)
[2023-01-22 10:39] LABS: INR 0.95; PROTHROMBIN TIME 12.9 SECONDS (12.5-14.5)
[2023-01-22 10:49] LABS: HEMOGLOBIN A1c 6.3 % (4.0-6.0)
[2023-01-22 10:53] LABS: PROSTATIC SPECIFIC AG MONITOR 0.76 NG/ML (< 4.00)
[2023-01-22 10:56] LABS: ALBUMIN 3.9 G/DL (3.2-5.2); ALKALINE PHOSPHATASE 67 U/L (46-116); ALT/SGPT 21 U/L (7.0-40); AST/SGOT 11 U/L (<34); BILIRUBIN,TOTAL 0.9 MG/DL (0.3-1.2); BLOOD UREA NITROGEN 10 MG/DL (9-23); CARBON DIOXIDE LEVEL 31 MMOL/L (20-31); CHLORIDE LEVEL 106 MMOL/L (98-107); CHOLESTEROL LEVEL 80 MG/DL (<200); CHOLESTEROL RISK RATIO 3.12 (<5); CREATININE FOR GFR 0.87 MG/DL (0.70-1.30); GLOMERULAR FILTRATION RATE > 60.0 (>49); GLUCOSE, FASTING 125 MG/DL (74-106); HDL CHOLESTEROL 25.6 MG/DL (>40); LDL CHOLESTEROL 29.4 MG/DL (<100); NON-HDL-C 54.4 MG/DL; POTASSIUM SERUM 5.1 MMOL/L (3.5-5.1); SODIUM LEVEL 141 MMOL/L (136-145); TOTAL PROTEIN 6.6 G/DL (5.7-8.2); TRIGLYCERIDES LEVEL 125 MG/DL (<150)
[2023-01-22 10:57] LABS: THYROID STIMULATING HORMONE 0.256 uIU/ML (0.55-4.78)
== END ==
LOC: M RAD 09:39
PROVIDERS: ATTEND Family Medicine
DX: I10 Essential (primary) hypertension (principal); J44.9 Chronic obstructive pulmonary disease, unspecified; R97.20 Elevated prostate specific antigen [PSA]; Z79.01 Long term (current) use of anticoagulants

== ENCOUNTER 2023-02-03 07:36 | Day surgery (SDC) | payer MEDICARE, OTHER ==
[~2023-02-03] VITALS: Ht 165.1 cm; Wt 80.7 kg
[~2023-02-03 07:36] MED LIST changes: +CEFUROXIME 1MG/0.1ML INTRACAMERAL INJ As Ordered ONE; +CYCLOPENTOLATE 1% OPHTH SOLN 2ML BTL OD SCH; +LIDOCAINE 1% SDV 5ML VIAL As Ordered ONE; -METO1TAB87; +METO1TAB87 PO; +MIDAZOLAM INJ 2MG/2ML VIAL As Ordered ONE; +OFLOXACIN 0.3 % (OCUFLOX) OPTH SOL 5ML OD SCH; +PHENYLEPHRINE 2.5% OPHTH SOL 2ML OD SCH; +PROPARACAINE 0.5% OPHTH SOL 15ML OD ONE; +TROPICAMIDE 1% OPHTH SOLN 15ML OD SCH; +fentaNYL 100 MCG/2 ML INJECTION As Ordered ONE
[2023-02-03] MEDS ORDERED: LIDOCAINE 1% SDV 5ML VIAL SC PRN (08:00)
[2023-02-03 09:40] VITALS: BP 119/64; TEMP 98.6; O2SAT 94
== END 2023-02-03 08:51 | disposition home or self-care (01) ==
LOC: M SDC 07:36
PROVIDERS: ATTEND Ophthalmology
DX: H25.11 Age-related nuclear cataract, right eye (principal); I10 Essential (primary) hypertension; E78.5 Hyperlipidemia, unspecified; I25.2 Old myocardial infarction; E11.9 Type 2 diabetes mellitus without complications; Z95.5 Presence of coronary angioplasty implant and graft; Z79.899 Other long term (current) drug therapy
CPT/HCPCS: 66984; J0697; J2250; J3010; V2632

== ENCOUNTER 2023-03-03 06:47 | Day surgery (SDC) | payer MEDICARE, OTHER ==
[~2023-03-03] VITALS: Ht 165.1 cm; Wt 79.4 kg
[~2023-03-03 06:47] MED LIST changes: +BSS IRR 500ML/OMIDRIA 4ML IRR BAG (OR ONLY) As Ordered ONE; -CYCLOPENTOLATE 1% OPHTH SOLN 2ML BTL OD SCH; +CYCLOPENTOLATE 1% OPHTH SOLN 2ML BTL OS SCH; +FOSI20TA79 PO; -MIDAZOLAM INJ 2MG/2ML VIAL As Ordered ONE; -OFLOXACIN 0.3 % (OCUFLOX) OPTH SOL 5ML OD SCH; +OFLOXACIN 0.3 % (OCUFLOX) OPTH SOL 5ML OS SCH; -PHENYLEPHRINE 2.5% OPHTH SOL 2ML OD SCH; +PHENYLEPHRINE 2.5% OPHTH SOL 2ML OS SCH; -PROPARACAINE 0.5% OPHTH SOL 15ML OD ONE; +PROPARACAINE 0.5% OPHTH SOL 15ML OS ONE; -TROPICAMIDE 1% OPHTH SOLN 15ML OD SCH; +TROPICAMIDE 1% OPHTH SOLN 15ML OS SCH; -fentaNYL 100 MCG/2 ML INJECTION As Ordered ONE
[2023-03-03] MEDS ORDERED: fentaNYL 100 MCG/2 ML INJECTION As Ordered ONE (08:29)
[2023-03-03] MEDS ORDERED: MIDAZOLAM INJ 2MG/2ML VIAL As Ordered ONE (08:29)
[2023-03-03] MEDS ORDERED: hydrALAZINE 20MG/ML 1ML VIAL As Ordered ONE (08:32)
[2023-03-03 08:43] VITALS: BP 154/84; TEMP 96.9; O2SAT 95
== END 2023-03-03 08:57 | disposition home or self-care (01) ==
LOC: M SDC 06:47
PROVIDERS: ATTEND Ophthalmology
DX: H25.12 Age-related nuclear cataract, left eye (principal); I25.2 Old myocardial infarction; N40.0 Benign prostatic hyperplasia without lower urinary tract symptoms; F41.9 Anxiety disorder, unspecified; F32.A Depression, unspecified; E03.9 Hypothyroidism, unspecified; E11.9 Type 2 diabetes mellitus without complications; E78.5 Hyperlipidemia, unspecified; Z95.1 Presence of aortocoronary bypass graft; Z79.84 Long term (current) use of oral hypoglycemic drugs; Z79.899 Other long term (current) drug therapy
CPT/HCPCS: 66984; J0360; J0697; J1097; J2250; J3010; V2632

== ENCOUNTER → 2023-09-30 | Outpatient (CLI) | payer MEDICARE, OTHER ==
[~2023-09-30] MED LIST changes: -BSS IRR 500ML/OMIDRIA 4ML IRR BAG (OR ONLY) As Ordered ONE; -CEFUROXIME 1MG/0.1ML INTRACAMERAL INJ As Ordered ONE; -CYCLOPENTOLATE 1% OPHTH SOLN 2ML BTL OS SCH; -LIDOCAINE 1% SDV 5ML VIAL As Ordered ONE; -OFLOXACIN 0.3 % (OCUFLOX) OPTH SOL 5ML OS SCH; -PHENYLEPHRINE 2.5% OPHTH SOL 2ML OS SCH; -PROPARACAINE 0.5% OPHTH SOL 15ML OS ONE; -TROPICAMIDE 1% OPHTH SOLN 15ML OS SCH
[2023-09-30 11:22] LABS: HEMATOCRIT 47.4 % (42.0-52.0); HEMOGLOBIN 15.8 g/dl (13.5-17.5); MEAN CORPUSCULAR HEMOGLOBIN 30.2 pg (27.0-33.0); MEAN CORPUSCULAR HGB CONC 33.3 g/dl (32.0-36.5); MEAN CORPUSCULAR VOLUME 90.5 fl (80.0-96.0); PLATELET COUNT, AUTOMATED 164 10^3/uL (150-450); RED BLOOD COUNT 5.24 10^6/uL (4.30-6.10); WHITE BLOOD COUNT 5.7 10^3/uL (4.0-10.0)
[2023-09-30 12:11] LABS: ALBUMIN 3.7 G/DL (3.2-5.2); ALKALINE PHOSPHATASE 63 U/L (46-116); ALT/SGPT 29 U/L (7.0-40); AST/SGOT 15 U/L (<34); BLOOD UREA NITROGEN 19 MG/DL (9-23); CALCIUM LEVEL 8.7 MG/DL (8.3-10.6); CARBON DIOXIDE LEVEL 28 MMOL/L (20-31); CHLORIDE LEVEL 105 MMOL/L (98-107); CHOLESTEROL LEVEL 105 MG/DL (<200); CREATININE FOR GFR 0.72 MG/DL (0.70-1.30); GLOMERULAR FILTRATION RATE > 60.0 (>42); GLUCOSE, FASTING 206 MG/DL (74-106); HDL CHOLESTEROL 26.2 MG/DL (>40); LDL CHOLESTEROL 34.2 MG/DL (<100); NON-HDL-C 78.8 MG/DL; PROSTATIC SPECIFIC AG MONITOR 0.28 NG/ML (< 4.00); SODIUM LEVEL 139 MMOL/L (136-145); TOTAL PROTEIN 6.4 G/DL (5.7-8.2); TRIGLYCERIDES LEVEL 223 MG/DL (<150)
[2023-09-30 12:14] LABS: HEMOGLOBIN A1c 7.2 % (4.0-6.0)
[2023-09-30 12:15] LABS: TESTOSTERONE 81 NG/DL (241-827)
== END ==
LOC: M LAB 10:15
PROVIDERS: ATTEND Family Medicine
DX: I10 Essential (primary) hypertension (principal); R97.20 Elevated prostate specific antigen [PSA]

== ENCOUNTER → 2024-01-18 | Outpatient (CLI) | payer MEDICARE, OTHER ==
[2024-01-18 15:03] LABS: HEMATOCRIT 47.5 % (42.0-52.0); MEAN CORPUSCULAR HEMOGLOBIN 31.6 pg (27.0-33.0); MEAN CORPUSCULAR HGB CONC 33.7 g/dl (32.0-36.5); MEAN CORPUSCULAR VOLUME 93.7 fl (80.0-96.0); PLATELET COUNT, AUTOMATED 149 10^3/uL (150-450); RED BLOOD COUNT 5.07 10^6/uL (4.30-6.10)
[2024-01-18 15:25] LABS: HEMOGLOBIN A1c 6.5 % (4.0-6.0)
[2024-01-18 15:36] LABS: PSA SCREENING 0.39 NG/ML (< 4.00)
[2024-01-18 15:40] LABS: ALBUMIN 3.7 G/DL (3.2-5.2); ALKALINE PHOSPHATASE 55 U/L (46-116); ALT/SGPT 28 U/L (7.0-40); AST/SGOT 13 U/L (<34); BILIRUBIN,TOTAL 0.7 MG/DL (0.3-1.2); BLOOD UREA NITROGEN 11 MG/DL (9-23); CALCIUM LEVEL 8.4 MG/DL (8.3-10.6); CARBON DIOXIDE LEVEL 28 MMOL/L (20-31); CHLORIDE LEVEL 110 MMOL/L (98-107); CHOLESTEROL LEVEL 75 MG/DL (<200); GLOMERULAR FILTRATION RATE > 60.0 (>42); GLUCOSE, FASTING 119 MG/DL (74-106); HDL CHOLESTEROL 21.4 MG/DL (>40); LDL CHOLESTEROL 28.8 MG/DL (<100); NON-HDL-C 53.6 MG/DL; SODIUM LEVEL 141 MMOL/L (136-145); THYROID STIMULATING HORMONE 0.313 uIU/ML (0.55-4.78); TOTAL PROTEIN 6.1 G/DL (5.7-8.2); TRIGLYCERIDES LEVEL 124 MG/DL (<150)
[2024-01-18 15:41] LABS: TESTOSTERONE 532 NG/DL (241-827)
== END ==
LOC: M LAB 13:51
PROVIDERS: ATTEND Family Medicine
DX: I10 Essential (primary) hypertension (principal); R53.83 Other fatigue; Z12.5 Encounter for screening for malignant neoplasm of prostate
CPT/HCPCS: 36415; 80053; 80061; 83036; 84403; 84443; 85027; G0103

== ENCOUNTER → 2024-03-08 | Outpatient (CLI) | payer MEDICARE, OTHER | LOC: M RAD 09:54 | PROVIDERS: ATTEND Family Medicine | DX: J40 Bronchitis, not specified as acute or chronic (principal) ==

== ENCOUNTER → 2024-04-07 | Outpatient (CLI) | payer MEDICARE, OTHER ==
[2024-04-07 12:58] LABS: HEMATOCRIT 48.8 % (42.0-52.0); HEMOGLOBIN 16.5 g/dl (13.5-17.5); MEAN CORPUSCULAR HEMOGLOBIN 30.8 pg (27.0-33.0); MEAN CORPUSCULAR HGB CONC 33.8 g/dl (32.0-36.5); PLATELET COUNT, AUTOMATED 143 10^3/uL (150-450); RED BLOOD COUNT 5.36 10^6/uL (4.30-6.10); WHITE BLOOD COUNT 6.5 10^3/uL (4.0-10.0)
[2024-04-07 13:11] LABS: HEMOGLOBIN A1c 6.6 % (4.0-6.0)
[2024-04-07 13:31] LABS: PROSTATIC SPECIFIC AG MONITOR 0.49 NG/ML (< 4.00)
[2024-04-07 13:35] LABS: ALBUMIN 3.8 G/DL (3.2-5.2); ALKALINE PHOSPHATASE 58 U/L (46-116); ALT/SGPT 34 U/L (7.0-40); AST/SGOT 17 U/L (<34); BILIRUBIN,TOTAL 1.1 MG/DL (0.3-1.2); BLOOD UREA NITROGEN 12 MG/DL (9-23); CALCIUM LEVEL 9.1 MG/DL (8.3-10.6); CARBON DIOXIDE LEVEL 30 MMOL/L (20-31); CHLORIDE LEVEL 108 MMOL/L (98-107); CHOLESTEROL LEVEL 91 MG/DL (<200); CHOLESTEROL RISK RATIO 3.55 (<5); CREATININE FOR GFR 0.76 MG/DL (0.70-1.30); GLOMERULAR FILTRATION RATE > 60.0 (>42); GLUCOSE, FASTING 142 MG/DL (74-106); HDL CHOLESTEROL 25.6 MG/DL (>40); LDL CHOLESTEROL 41.8 MG/DL (<100); NON-HDL-C 65.4 MG/DL; POTASSIUM SERUM 4.9 MMOL/L (3.5-5.1); SODIUM LEVEL 140 MMOL/L (136-145); TESTOSTERONE 574 NG/DL (241-827); THYROID STIMULATING HORMONE 0.325 uIU/ML (0.55-4.78); TOTAL 25(OH) VITAMIN D 35.4 NG/ML (20.0-100.0); TOTAL PROTEIN 6.5 G/DL (5.7-8.2); TRIGLYCERIDES LEVEL 118 MG/DL (<150)
== END ==
LOC: M LAB 11:08
PROVIDERS: ATTEND Family Medicine
DX: I10 Essential (primary) hypertension (principal); R97.20 Elevated prostate specific antigen [PSA]

== ENCOUNTER → 2024-07-07 | Outpatient (CLI) | payer MEDICARE, OTHER ==
[~2024-07-07] MED LIST changes: -TADA5TAB PO; +TADA5TAB94 PO
[2024-07-07 14:00] LABS: HEMATOCRIT 49.5 % (42.0-52.0); HEMOGLOBIN 16.3 g/dl (13.5-17.5); MEAN CORPUSCULAR HEMOGLOBIN 30.6 pg (27.0-33.0); MEAN CORPUSCULAR HGB CONC 32.9 g/dl (32.0-36.5); MEAN CORPUSCULAR VOLUME 92.9 fl (80.0-96.0); PLATELET COUNT, AUTOMATED 177 10^3/uL (150-450); RED BLOOD COUNT 5.33 10^6/uL (4.30-6.10); WHITE BLOOD COUNT 6.5 10^3/uL (4.0-10.0)
[2024-07-07 14:48] LABS: ALBUMIN 3.9 G/DL (3.2-5.2); ALKALINE PHOSPHATASE 56 U/L (40-129); ALT/SGPT 30 U/L (7.0-40); AST/SGOT 16 U/L (<34); BILIRUBIN,TOTAL 0.6 MG/DL (0.3-1.2); BLOOD UREA NITROGEN 10 MG/DL (9-23); CALCIUM LEVEL 8.8 MG/DL (8.3-10.6); CARBON DIOXIDE LEVEL 31 MMOL/L (20-31); CHLORIDE LEVEL 106 MMOL/L (98-107); CHOLESTEROL LEVEL 113 MG/DL (<200); CHOLESTEROL RISK RATIO 3.54 (<5); GLOMERULAR FILTRATION RATE > 60.0 (>42); GLUCOSE, FASTING 112 MG/DL (74-106); HDL CHOLESTEROL 31.9 MG/DL (>40); LDL CHOLESTEROL 55.1 MG/DL (<100); NON-HDL-C 81.1 MG/DL; POTASSIUM SERUM 5.1 MMOL/L (3.5-5.1); PROSTATIC SPECIFIC AG MONITOR 0.52 NG/ML (< 4.00); SODIUM LEVEL 146 MMOL/L (136-145); TESTOSTERONE 995 NG/DL (241-827); THYROID STIMULATING HORMONE 0.971 uIU/ML (0.55-4.78); TOTAL PROTEIN 6.6 G/DL (5.7-8.2); TRIGLYCERIDES LEVEL 130 MG/DL (<150)
== END ==
LOC: M RAD 12:08
PROVIDERS: ATTEND Family Medicine
DX: I10 Essential (primary) hypertension (principal); R97.20 Elevated prostate specific antigen [PSA]

== ENCOUNTER → 2024-08-11 | Outpatient (CLI) | payer MEDICARE, OTHER | LOC: M RAD 13:16 | PROVIDERS: ATTEND Family Medicine | DX: I65.21 Occlusion and stenosis of right carotid artery (principal) ==

== ENCOUNTER → 2024-12-26 | Outpatient (CLI) | payer MEDICARE, OTHER ==
[~2024-12-26] MED LIST changes: -FLOM0.4C39 PO; +TADA5TAB2 PO; -TADA5TAB94 PO; +TAMS-18 PO
[2024-12-26 10:11] LABS: PLATELET COUNT, AUTOMATED 145 10^3/uL (150-450)
[2024-12-26 10:41] LABS: PROSTATIC SPECIFIC AG MONITOR 0.28 NG/ML (< 4.00)
[2024-12-26 10:42] LABS: ALT/SGPT 21 U/L (7.0-40); AST/SGOT 18 U/L (<34); CALCIUM LEVEL 9.0 MG/DL (8.3-10.6); CARBON DIOXIDE LEVEL 27 MMOL/L (20-31); CHLORIDE LEVEL 106 MMOL/L (98-107); CHOLESTEROL LEVEL 92 MG/DL (<200); CHOLESTEROL RISK RATIO 3.69 (<5); CREATININE FOR GFR 0.81 MG/DL (0.70-1.30); GLOMERULAR FILTRATION RATE > 90.0 (>42); LDL CHOLESTEROL 42.9 MG/DL (<100); NON-HDL-C 67.1 MG/DL; POTASSIUM SERUM 4.7 MMOL/L (3.5-5.1); SODIUM LEVEL 144 MMOL/L (136-145); TRIGLYCERIDES LEVEL 121 MG/DL (<150)
[2024-12-26 10:46] LABS: TESTOSTERONE 45 NG/DL (241-827)
[2024-12-26 10:52] LABS: ESTIMATED AVERAGE GLUCOSE 126.0 MG/DL (60-110)
== END ==
LOC: M LAB 09:41
PROVIDERS: ATTEND Family Medicine
DX: I10 Essential (primary) hypertension (principal); R97.20 Elevated prostate specific antigen [PSA]; Z79.899 Other long term (current) drug therapy

== ENCOUNTER → 2025-04-12 | Outpatient (CLI) | payer MEDICARE, OTHER | LOC: M LAB 11:13 | PROVIDERS: ATTEND Student in an Organized Health Care Education/Training Program | DX: R79.89 Other specified abnormal findings of blood chemistry (principal) ==

== ENCOUNTER → 2025-05-16 | Outpatient (REF) | payer MEDICARE, OTHER | LOC: M SFHCPLAZ 15:38 | PROVIDERS: ATTEND Student in an Organized Health Care Education/Training Program | DX: D22.9 Melanocytic nevi, unspecified (principal) ==